=== PATIENT | female | born 1965 | race Caucasian/White ===

== ENCOUNTER 2021-07-22 14:21 | Outpatient (REF) | payer OTHER, SELFPAY ==
[2021-07-22 14:43] LABS: MANUAL DIFF FLAG NO
[2021-07-22 14:54] LABS: Basophils Percent Auto 0.3 % (0-2); Eosinophils Absolute Auto 0.2 X10*3/uL (0.0-0.4); Eosinophils Percent Auto 2.7 % (0-4); Hematocrit 40.2 % (37.0-47.0); Hemoglobin 13.6 g/dl (12.0-16.0); Imm Gran Abs Auto 0.02 X10*3/uL (0.00-0.03); Imm Gran Pct Auto 0.3 % (0.0-0.4); Lymphocytes Absolute Auto 2.7 X10*3/uL (1.2-4.9); Lymphocytes Percent Auto 38.9 % (20-40); Mean Corpuscular HGB Conc 33.8 g/dl (31.0-35.0); Mean Corpuscular Hemoglobin 31.3 pg (27.0-33.0); Mean Corpuscular Volume 92.4 fL (80.0-98.0); Mean Platelet Volume 9.5 fL (9.4-12.3); Monocytes Absolute Auto 0.5 X10*3/uL (0.1-1.2); Monocytes Percent Auto 7.3 % (2-11); Neutrophils Absolute Auto 3.6 x10*3/uL (2.0-8.3); Neutrophils Percent Auto 50.5 % (45-73); Platelet Count 238 X10*3/uL (160-400); Red Blood Count 4.35 X10*6/uL (4.20-5.50); Red Cell Distribution Width 12.8 % (11.0-16.0)
[2021-07-22 15:34] LABS: Erythrocyte Sedimentation Rate 8 MM/HR (0-20)
[2021-07-22 15:46] LABS: Anion Gap 10 (12-20); Blood Urea Nitrogen 16 mg/dL (9-16); Calcium 9.7 mg/dL (8.4-10.2); Carbon Dioxide 28 mmol/L (22-29); Chloride 102 mmol/L (96-108); Cholesterol 227 mg/dL; Estimated Glomerular Filt Rate > 60; Glucose Random 82 mg/dL (60-115); HDL Cholesterol 75 mg/dL; LDL Cholesterol Calculated 138 mg/dl; Potassium 3.8 mmol/L (3.3-5.1); Sodium 136 mmol/L (135-145); Triglycerides 73 mg/dL
[2021-07-22 16:09] LABS: Thyroid Stimulating Hormone 1.29 uIU/mL (0.32-4.0)
[2021-07-22 16:40] LABS: T4 Thyroxine 6.5 ug/dL (4.5-12.0)
== END 2021-07-22 14:22 | disposition home or self-care (01) ==
LOC: HO.LAB 14:21
PROVIDERS: PCP Internal Medicine; Visit Provider Psychiatry & Neurology Neurology
DX: M79.7 Fibromyalgia (principal)
CPT/HCPCS: 36415; 80048; 80061; 82550; 84436; 84443; 85025; 85652

== ENCOUNTER 2024-10-18 13:19 | Outpatient (AMB) | payer OTHER, SELFPAY ==
--- NOTE | 2024-10-18 13:45 | A.OFFVIS_ITS ---
Intake Visit Reasons: MS follow up Allergies erythromycin base Allergy (Verified 10/17/24 18:01) Unknown Medication List - Last Reconciled 10/18/24 by Mal García MD ibuprofen 600 mg PO TID loratadine (Claritin) 10 mg PO DAILY lorazepam 1 mg PO BID paroxetine HCl 10 mg PO DAILY HPI Comments Details: Getting some dizzy spells with lightheadedness with presyncopal every other day for last 3 weeks. It lasts about 10 secs or less. Sh epanics and gets nervous and sits down till it passes. It happens while standing and on times sitting also. Also getting bad neck pain. No new MS symptoms. Headaches have been okay. Meclizine and lorazepam help. 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 Sleep is okay. Ongoing fatigue, takes naps during the day when not working. Has some numbness/tingling in legs that comes and goes. Generalized achiness. She has handicap placard form to be completed. MRI brain from 2005, 09/2017, and 02/2023 appears stable over 12 years, most consistent with MS. Developed some right-sided weakness and difficulty talking in 1995. She was admitted to [facility] and diagnosed with possible encephalitis, had follow up MRI in 2005 which did not show any significant change. MRI on 10/03/2017 shows same lesions in the right middle cerebral peduncle and the subcortical areas in the right hemisphere predominately in the frontal-parietal region and one on the left side. The dizzy spells started 3x/week dizzy and presyncopal episodes only while driving. On one occasion, she started to feel faint during driving, became very nervous and pulled over and was having panic attack. She called her parents to come and pick her up. She is now driving on backroads only. She also gets intermittent, transient tingling sensations in various parts of the body, particularly the left upper extremity. More with stress. She does have anxiety disorder and takes lorazepam 1mg twice a day. [facility] Medical History (Updated 10/18/24 @ 13:59 by Mal García MD) Multiple sclerosis Panic disorder Encephalitis Social History (Updated 10/17/24 @ 18:02 by Wendy Valdovinos MA) Patient Tobacco Use Status: Current everyday Tobacco user Review of Systems Const Details: ROS: ? General/Constitutional Change in appetite?denies.?Chills?denies.?Fatigue?admits.?Fever?denies.?Weight gain?denies.?Weight loss?denies. ? Sleep Difficulty getting to sleep?denies.?Difficulty maintaining sleep?denies?.?Urge to move legs?denies.?Teeth grinding?admits.?Shouting or Kicking during sleep ?denies.?Abnormal behavior during sleep?denies.?Excessive sleep?denies.?Snoring ?denies.?Daytime sleepiness?denies. ? Respiratory Shortness of breath?denies.?Chest pain?denies.?Cough?denies. ? Cardiovascular Chest pain at rest?denies.?Chest pain with exertion?denies.?Claudication ?denies.?Dizziness?denies.?Fluid accumulation in the legs?denies.?Irregular heartbeat?denies.?Palpitations?denies. ? Gastrointestinal Abdominal pain?denies.?Constipation?denies.?Diarrhea?denies.?Difficulty swallowing?denies.?Heartburn?denies.?Nausea?denies.?Rectal bleeding?denies. ? Genitourinary Frequent urination?denies.?Urgency?admits.?Incontinence?denies.?Erectile Dysfunction?denies. ? Musculoskeletal Neck pain?admits.?Back pain?admits.?Muscle aches?denies.?Painful joints ?denies.?Sciatica?denies.?Weakness?denies. ? Neurologic Difficulty swallowing?denies.?Balance difficulty?admits.?Coordination?normal.? Difficulty speaking?denies.?Dizziness?admits.?Fainting?denies.?Gait abnormality ?denies.?Headache?admits.?Loss of strength?denies.?Loss of use of extremity ?denies.?Low back pain?denies.?Memory loss?denies.?Seizures?denies.?Tics ?denies.?Tingling/Numbness?Left hand.?Transient loss of vision?denies.?Tremor ?denies. ? Psychiatric Anxiety?admits.?Auditory/visual hallucinations?denies.?Delusions?denies.? Depressed mood?denies.?Stressors?admits.?Substance abuse?denies.?Suicidal thoughts?denies. Physical Exam Vital Signs: BP 124/86 sitting , 132/87 standing Pulse 88 Neuro Other: Mini Mental Status Exam Level of Consciousness:?Alert.? Orientation:?Knows correct year, month, date, day and season,?Knows correct city, county and state. Knows correct location and floor.? Registration:?Able to register 3 objects.? Attention:?Serial 7's performed accurately.? Recall:?Able to recall 3 out of 3 objects.? Language:?Normal spontaneous speech, fluency, repetition,naming, comprehension, reading and writing.? Total Score:?30/30.? Neurological Abnormal neurological findings:?Circumducting gait, very mild low amplitude, medium frequency bilateral hand tremor worse on finger to nose, slight head tremor?.? Mental Status:?alert and oriented X 3,?Normal attention, orientation, memory and affect.? Cranial Nerves:?Pupils are equal, round and reactive to light. Fundoscopy shows normal disc bilaterally. External occular muscles are intact. Visual almonte are full, no ptosis. Face is symmetrical, no facial weakness or droop. Facial sensat ions are normal. Tongue protrudes in midline. Palate elevates symmetrically. Shoulder shrugging is normal..? Motor Examination:?Normal muscle tone, bulk and strength,?No atrophy or fasciculations,?No drift of the extended upper extremities,?Deep tendon reflexes are 2+?,?Plantars are flexor?.? Straight Leg Raising:?90 degrees.? Sensory Exam:?Normal light touch, temperature, pinprick, vibration and joint- position sensations?,?Rhomberg sign is absent.? Coordination:?no ataxia,?no titubation,?bvdcbl-ad-ubqt, qrvk-metw-szca test and rapid alternating movements were normal.? Gait Exam:?Within normal limits.? Cerebellar Signs:?Nocsvv-in-cofi and oder-ls-lfag is normal,?no dysdiadochokinesia?.? Extrapyramidal System:?No tremor, rigidity with normal facial expressions,?No bradykinesia, no bradyphrenia. Normal arm swing and posture. No propulsion or retropulsion.? Speech:?Normal,?no dysphasia or dysarthria..? General Examination GENERAL APPEARANCE:??normal,?in no acute distress.? HEART:??S1, S2 normal,?no murmurs.? LUNGS:??clear anteriorly and posteriorly.? MUSCULOSKELETAL:??normal.? EXTREMITIES:??no edema.? PSYCH:??alert, oriented,?cognitive function intact,?cooperative with exam.? Assessment & Plan Assessment & Plan (1) Dizziness: Code(s): R42 - Dizziness and giddiness Category: Medical (2) Multiple sclerosis: Comment: first symptomatic in 1995 and recovered over 4 months Code(s): G35 - Multiple sclerosis Category: Medical Plan 72 hr Holter monitor for presyncopal dizzy spells. Continue current meds Orders: Orders ECG 3 day holter monitor Today R42 - Dizziness and giddiness Coding Level of Care Code Est Pt Level 4 (41445) Diagnoses Dizziness R42 Multiple sclerosis G35
--- OUTSIDE RECORDS SUMMARY | 2024-10-18 14:30 | XMS_ITS | Clinical Summary ---
Author Organization [employer] [facility] [employer] Address [address] [place] [address] Care Team Providers Care Implementation Coordinator Name Role Phone Jin Gamboa MD Primary Care Provider Allergies Active Allergy Reactions Criticality Noted Date Comments Amoxicillin 05/26/2022 Erythromycin 05/26/2022 States was anxious. They thought I had meningitis. I went to the ER . No notes found for ER visits, erythromycin listed as allergy June 2008 but not again until 2011 without specific reaction Penicillins 05/26/2022 Medications lorazepam (ATIVAN) 1 MG tablet Active PARoxetine (PAXIL) 10 MG tablet See Instructions, 1/2 tablet By Mouth Daily, Refills 0, Maintenance, 05/11/20 8:50:00 EST, Instructions Replace Required Details, Partial fill upon patient request if the prescription is for a schedule II opioid drug. Active Social History Tobacco Use Types Packs/Day Years Used Date Smoking Tobacco: Every Day Cigarettes Passive Smoke Exposure: Current Smokeless Tobacco: Never Tobacco Cessation:Ready to Q uit: No; Counseling Given: Yes Comments:Pt made aware of smoking cessation services here at the clinic-is not yet ready to quit Comments No Sex and Gender Information Value Date Recorded Sex Assigned at Not on file Legal Sex Female 8:34 AM EDT Gender Identity Not on file Sexual Orientation Not on file Last Filed Vital Signs Vital Sign Reading Time Taken Comments Blood Pressure 104/72 05/26/2022 2:26 PM EST Pulse 72 05/26/2022 2:26 PM EST Temperature 36.8 C (98.2 F) 05/26/2022 2:26 PM EST Respiratory Rate 18 05/26/2022 2:26 PM EST Oxygen Saturation 96% 05/26/2022 2:26 PM EST Inhaled Oxygen Concentration - - Weight - - Height - - Body Mass Index - - Plan of Treatment Health Maintenance Due Date Last Done Comments Colorectal Cancer: COLONOSCO PY Screening every 10 yrs (or Modifier) 1967 Depression: Screening Annual ly using PHQ-2/9 in Adults 18 yrs or above (or HM Modifier)([facility]) 1985 Hepatitis C Virus Infection in Adolescents and Adults: Screening (or Modifier) ([facility]) 1985 ROBERT Screening: Once using ST OP-BANG Questionnaire for Adults with Conditions or high BMI([facility]) 1985 SDOH Screening Reminder: Enedina rachell for all adults ([facility]) 1985 Tobacco Smoking Cessation: i n Adults excluding Women: Behavioral and Pharmacotherapy Interventions ([facility]) 1985 Cervical Cancer Screenin 1-65 yrs of age (or Modifier) 02/14/1988 Cervical Cancer Screening: P ap every 3 yrs pts age 21-65 02/14/1988 Cervical Cancer: Pap Screeni ng with Modifier timing ([facility]) 02/14/1988 Cervical Cancer: hrHPV alone or with cotesting Pap for Pts 30-65yrs screening every 5yrs ([facility]) 02/14/1988 Colorectal Cancer Screening 45 -75 Yrs (or HM Modifier) 02/14/2012 Colorectal Cancer: FLEXIBLE SIGMOIDOSCOPY Screening every 5 yrs 02/14/2012 Colorectal Cancer: Fecal Imm unochemical Test (FIT) Annually [facility] 02/14/2012 Colorectal Cancer: High-sens itivity gFOBT Screening Annually [facility] 02/14/2012 Colorectal Cancer: Stool Col oguard Screening every 3 yrs 02/14/2012 Colorectal Cancer:CT Colonog dalia Screening every 5 yrs 02/14/2012 Breast Cancer: Screening Enedina ually age 50-74 yrs (or HM Modifier)([facility]) 2017 Lung Cancer: Screening Annua lly in adults aged 50 to 80 years (or HM Modifiers)([facility]) 2017 Pneumococcal Vaccination Scr eening: Patients 50+ yrs of age ([facility]) (1 of 1 - PCV) 2017 Zoster/Shingles Vaccine Seri es Screening: Adults aged 18+ yrs (or HM Modifiers)([facility]) (1 of 2) 2017 COVID-19 Vaccine Screening: Initial Series and Booster Status ([facility]) (2023- season) 2023 Flu Vaccination: Yearly for ages 18mos through 64 years (or Modifier)([facility] ) 11/18/2024 DTaP/Tdap/Td Vaccines ([facility]) (3 - Td or Tdap) 08/04/2027 08/03/2017, 10/03/2010 Medical Devices Not on file Insurance , [address] [place] [address] [employer] Care Teams Implementation Coordinator Relationship Specialty Start Date End Date Jin Gamboa MD [address] [place] [id number] PCP - General Internal Medicine 05/26/22
== END 2024-10-18 14:11 | disposition home or self-care (01) ==
LOC: HO.HSM 13:20
PROVIDERS: PCP Internal Medicine; Referring Provider Internal Medicine; Visit Provider Psychiatry & Neurology Neurology
DX: R42 Dizziness and giddiness (principal); G35 Multiple sclerosis
CPT/HCPCS: 99214

== ENCOUNTER → 2024-11-14 13:28 | Outpatient (REF) | payer OTHER, SELFPAY ==
--- NOTE | 2024-11-14 13:31 | HM_ITS ---
Conclusion: 1. Patient was monitored for total period of 3 days 2. Baseline was normal sinus rhythm with average heart of 89 beats per minute 3. No significant pauses noted 4. Rare PACs and PVCs noted without any sustained tachyarrhythmias 5. 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
--- OUTSIDE RECORDS SUMMARY | 2024-11-14 14:09 | XMS_ITS | Clinical Summary ---
Author Organization [email or web address] [facility] [employer] Address [address] [place] [address] Care Team Providers Care Wheel Polisher Name Role Phone Jin Gamboa MD Primary [...] Adults 18 yrs or above (or HM Modifier)([facility]) 1985 Hepatitis C Virus Infection in Adolescents and Adults: Screening (or Modifier) ([facility]) 1985 ROBERT Screening: Once using ST OP-BANG Questionnaire for Adults with Conditions or high BMI([facility]) 1985 SDOH Screening Reminder: Enedina rachell for all adults ([facility]) 1985 Tobacco Smoking Cessation: i n Adults excluding Women: Behavioral and Pharmacotherapy Interventions ([facility]) 1985 Cervical Cancer Screenin 1-65 yrs of age (or Modifier) 02/14/1988 Cervical Cancer Screening: P ap every 3 yrs pts age 21-65 02/14/1988 Cervical Cancer: Pap Screeni ng with Modifier timing ([facility]) 02/14/1988 Cervical Cancer: hrHPV alone or with cotesting Pap for Pts 30-65yrs screening every 5yrs ([facility]) 02/14/1988 Colorectal Cancer Screening 45 -75 Yrs (or HM Modifier) 02/14/2012 Colorectal Cancer: FLEXIBLE SIGMOIDOSCOPY Screening every 5 yrs 02/14/2012 Colorectal Cancer: Fecal Imm unochemical Test (FIT) Annually [facility] 02/14/2012 Colorectal Cancer: High-sens itivity gFOBT Screening Annually [facility] 02/14/2012 Colorectal Cancer: Stool Col oguard Screening every 3 yrs 02/14/2012 Colorectal Cancer:CT Colonog dalia Screening every 5 yrs 02/14/2012 Breast Cancer: Screening Enedina ually age 50-74 yrs (or HM Modifier)([facility]) 2017 Lung Cancer: Screening Annua lly in adults aged 50 to 80 years (or HM Modifiers)([facility]) 2017 Pneumococcal Vaccination Scr eening: Patients 50+ yrs of age ([facility]) (1 of 1 - PCV) 2017 Zoster/Shingles Vaccine Seri es Screening: Adults aged 18+ yrs (or HM Modifiers)([facility]) (1 of 2) 2017 COVID-19 Vaccine Screening: Initial Series and Booster Status ([facility]) (2023- season) 2023 Flu Vaccination: Yearly for ages 18mos through 64 years (or Modifier)([facility] ) 11/18/2024 DTaP/Tdap/Td Vaccines ([facility]) (3 - Td or Tdap) 08/04/2027 08/03/2017, 10/03/2010 Medical Devices Not on file Insurance , [address] [place] [address] [employer] Care Teams Wheel Polisher Relationship Specialty Start Date End Date Jin Gamboa MD [address] [place] [phone] PCP - General Internal Medicine 05/26/22
--- OUTSIDE RECORDS SUMMARY | 2024-11-14 14:09 | XMS_ITS | Clinical Summary ---
Author Organization [facility] Address [address] [address] Phone Care Team Providers Care Director Of Cardiac Cath Lab Name Role Phone Pcp, Unknown Primary Care Provider Unavailabl e Social History Tobacco Use Types Packs/Day Years Used Date Smoking Tobacco: Never Assessed Education Answer Date Recorded Are you interested in more education? Not on snehal e 08/15/2022 Are you concerned about learning? Not on file 08/15/2022 No 08/15/2022 No 08/15/2022 Digital Access Answer Date Recorded No 09/13/2022 No 09/13/2022 No 09/13/2022 Reliable internet access at home? Not on file 09/13/2022 Device with a working camera? Not on file Comments Unknown Sex and Gender Information Value Date Recorded Sex Assigned at Not on file Legal Sex Female 3:27 PM EST Gender Identity Not on file Sexual Orientation Not on file Plan of Treatment Health Maintenance Due Date Last Done Comments LIPID PANEL 1967 DEPRESSION SCREENING 1979 SMOKING Hx and SMOKELESS TOB ACCO SCREENING 02/14/1980 HEPATITIS C SCREENING 1985 HIV ONE-TIME SCREENING (18-6 5 YEARS) 1985 PAP SMEAR 02/14/1988 MAMMOGRAM 2007 COLOGUARD 02/14/2012 COLONOSCOPY 02/14/2012 COLORECTAL CANCER SCREENING 02/14/2012 FIT TEST 02/14/2012 FOBT 02/14/2012 SIGMOIDOSCOPY 02/14/2012 VIRTUAL COLONOSCOPY 02/14/2012 PNEUMOCOCCAL VACCINES (50+ y ears) (1 of 1 - PCV) 2017 ZOSTER VACCINES (1 of 2) 2017 COVID-19 VACCINE ( - 2023-2 5 season) 2023 Adult Td,Tdap Booster 08/04/2027 08/03/2017 HEPATITIS A VACCINES Aged Out No long er eligible based on patient's age to complete this topic HIB VACCINES Aged Out No longer eligi ble based on patient's age to complete this topic MENINGOCOCCAL VACCINES (ACWY) Aged Out No longer eligible based on patient's age to complete this topic MENINGOCOCCAL VACCINES (B) Aged Out N o longer eligible based on patient's age to complete this topic Medical Devices Not on file Insurance PPO PPO PPO PPO PPO PPO PPO PPO PPO Care Teams Director Of Cardiac Cath Lab Relationship Specialty Start Date End Date Pcp, Unknown PCP - General 11/15/21 Additional Source Comments The information contained in this document represents components of the legal health record. It is not the complete legal health record.[facility]
== END ==
LOC: HO.CARD 13:28
PROVIDERS: Visit Provider Psychiatry & Neurology Neurology
DX: R42 Dizziness and giddiness (principal)
CPT/HCPCS: 93242

== ENCOUNTER → 2024-11-14 13:31 | Outpatient (BNV) | payer OTHER, SELFPAY | PROVIDERS: Visit Provider Internal Medicine Cardiovascular Disease | DX: I49.1 Atrial premature depolarization (principal); I49.3 Ventricular premature depolarization | CPT/HCPCS: 93244 ==

== ENCOUNTER 2024-11-29 13:39 | Outpatient (AMB) | payer OTHER, SELFPAY ==
--- NOTE | 2024-11-29 14:06 | A.OFFVIS_ITS ---
Intake Visit Reasons: Dizziness Allergies erythromycin base Allergy (Verified 10/17/24 18:01) Unknown Medication List - Last Reconciled 11/29/24 by Mal García MD ibuprofen 600 mg PO TID loratadine (Claritin) 10 mg PO DAILY lorazepam 1 mg PO BID paroxetine HCl 10 mg PO DAILY 90 days HPI Comments Details: Has been off work because of dizziness since October 29. Still does not feel comfortable driving. Dizziness episodes are less frequent from 2/ dayto 3/ week lasting 2 secs to 45 secs with vertigo and lightheadedness. She is now getting neck pain and tremors in left arm and hand, Head bobbles. in December 2023 she slipped and fell in garage, shutting garage door on left hand and breaking two fingers. 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 No new MS symptoms. Headaches have been okay. Still has some dizziness, particularly when cars drive by quickly. Meclizine and lorazepam help. Sleep is okay. Ongoing fatigue, takes naps during the day when not working. Has some numbness/tingling in legs that comes and goes. Generalized achiness. She has handicap placard form to be completed. MRI brain from 2005, 09/2017, and 02/2023 appears stable over 12 years, most consistent with MS. Developed some right-sided weakness and difficulty talking in 1995. She was admitted to [facility] and diagnosed with possible encephalitis, had follow up MRI in 2005 which did not show any significant change. MRI on 10/03/2017 shows same lesions in the right middle cerebral peduncle and the subco rtical areas in the right hemisphere predominately in the frontal-parietal region and one on the left side. 3x/week dizzy and presyncopal episodes only while driving. On one occasion, she started to feel faint during driving, became very nervous and pulled over and was having panic attack. She called her parents to come and pick her up. She is now driving on backroads only. She also gets intermittent, transient tingling sensations in various parts of the body, particularly the left upper extremity. More with stress. She does have anxiety disorder and takes lorazepam 1mg twice a day. [facility] Medical History (Updated 11/29/24 @ 14:08 by Mal García MD) Tension headache Migraine without aura Fibromyalgia Venous insufficiency (chronic) (peripheral) Degenerative cervical disc Dizzy spells Multiple sclerosis Panic disorder Encephalitis Social History (Updated 10/17/24 @ 18:02 by Wendy Valdovinos MA) Patient Tobacco Use Status: Current everyday Tobacco user Physical Exam Vital Signs: BP 124/86 sitting , 132/87 standing Pulse 88 Neuro Other: ?Mini Mental Status Exam Level of Consciousness:?Alert.? Orientation:?Knows correct year, month, date, day and season,?Knows correct city, county and state. Knows correct location and floor.? Registration:?Able to register 3 objects.? Attention:?Serial 7's performed accurately.? Recall:?Able to recall 3 out of 3 objects.? Language:?Normal spontaneous speech, fluency, repetition,naming, comprehension, reading and writing.? Total Score:?.? Neurological Abnormal neurological findings:?Circumducting gait, very mild low amplitude, medium frequency bilateral hand tremor worse on finger to nose, slight head tremor?.? Mental Status:?alert and oriented X 3,?Normal attention, orientation, memory and affect.? Cranial Nerves:?Pupils are equal, round and reactive to light. Fundoscopy shows normal disc bilaterally. External occular muscles are intact. Visual almonte are full, no ptosis. Face is symmetrical, no facial weakness or droop. Facial sensations are normal. Tongue protrudes in midline. Palate elevates symmetrically. Shoulder shrugging is normal..? Motor Examination:?Normal muscle tone, bulk and strength,?No atrophy or fas ciculations,?No drift of the extended upper extremities,?Deep tendon reflexes are 2+?,?Plantars are flexor?.? Straight Leg Raising:?90 degrees.? Sensory Exam:?Normal light touch, temperature, pinprick, vibration and joint- position sensations?,?Rhomberg sign is absent.? Coordination:?no ataxia,?no titubation,?mqzphy-op-tedj, tgkf-yttd-fdcl test and rapid alternating movements were normal.? Gait Exam:?Within normal limits.? Cerebellar Signs:?Likfqf-sc-nouy and hwkn-bs-hord is normal,?no dysdiadochokinesia?.? Extrapyramidal System:?No tremor, rigidity with normal facial expressions,?No bradykinesia, no bradyphrenia. Normal arm swing and posture. No propulsion or retropulsion.? Speech:?Normal,?no dysphasia or dysarthria..? General Examination GENERAL APPEARANCE:??normal,?in no acute distress.? HEART:??S1, S2 normal,?no murmurs.? LUNGS:??clear anteriorly and posteriorly.? MUSCULOSKELETAL:??normal.? EXTREMITIES:??no edema.? PSYCH:??alert, oriented,?cognitive function intact,?cooperative with exam.? Results Reviewed Results Reviewed: 72 hr Holter report pending Assessment & Plan Assessment & Plan (1) Multiple sclerosis: Comment: first symptomatic in 1995 and recovered over 4 months Code(s): G35 - Multiple sclerosis Category: Medical (2) Migraine without aura: Code(s): G43.009 - Migraine without aura, not intractable, without status migrainosus Category: Medical (3) Tension headache: Code(s): G44.209 - Tension-type headache, unspecified, not intractable Category: Medical Plan: waiting Holter reading. Hand surgeon thru PCP for arthritic finger joints left hand and early Dupuytrens contracture. MRI (4) Dizziness: Code(s): R42 - Dizziness and giddiness Category: Medical Plan MRI brain with and without yong . Stay out of work till dizziness subsides over next 6 weeks. Orders: Orders MR head/brain wo/w con 4 Weeks G35 - Multiple sclerosis Coding Level of Care Code Est Pt Level 4 (64274) Diagnoses Multiple sclerosis G35 Migraine without aura G43.009 Tension headache G44.209 Dizziness R42
--- OUTSIDE RECORDS SUMMARY | 2024-11-29 14:35 | XMS_ITS | Clinical Summary ---
Author Organization [facility] Address [address] [address] Phone Care Team Providers Care Turbo Operator Name Role Phone Pcp, Unknown Primary Care [...] PPO PPO PPO PPO PPO Care Teams Turbo Operator Relationship Specialty Start Date End Date Pcp, Unknown PCP - General 11/15/21 Additional Source Comments The information contained in this document represents components of the legal health record. It is not the complete legal health record.[facility]
--- OUTSIDE RECORDS SUMMARY | 2024-11-29 14:35 | XMS_ITS | Clinical Summary ---
Author Organization [employer] [facility] [employer] Address [address] [email or web address] [address] Care Team Providers Care J2Ee Engineer Name Role Phone Jin Gamboa MD Primary [...] Adults 18 yrs or above (or HM Modifier)([facility]) 1985 Hepatitis C Virus Infection in Adolescents and Adults: Screening (or Modifier) ([facility]) 1985 ROBERT Screening: Once using ST OP-BANG Questionnaire for Adults with Conditions or high BMI([facility]) 1985 SDOH Screening Reminder: Enedina rachell for all adults ([facility]) 1985 Tobacco Smoking Cessation: i n Adults excluding Women: Behavioral and Pharmacotherapy Interventions ([facility]) 1985 Cervical Cancer Screenin 1-65 yrs of age (or Modifier) 02/14/1988 Cervical Cancer Screening: P ap every 3 yrs pts age 21-65 02/14/1988 Cervical Cancer: Pap Screeni ng with Modifier timing ([facility]) 02/14/1988 Cervical Cancer: hrHPV alone or with cotesting Pap for Pts 30-65yrs screening every 5yrs ([facility]) 02/14/1988 Colorectal Cancer Screening 45 -75 Yrs (or HM Modifier) 02/14/2012 Colorectal Cancer: FLEXIBLE SIGMOIDOSCOPY Screening every 5 yrs 02/14/2012 Colorectal Cancer: Fecal Imm unochemical Test (FIT) Annually [facility] 02/14/2012 Colorectal Cancer: High-sens itivity gFOBT Screening Annually [facility] 02/14/2012 Colorectal Cancer: Stool Col oguard Screening every 3 yrs 02/14/2012 Colorectal Cancer:CT Colonog dalia Screening every 5 yrs 02/14/2012 Breast Cancer: Screening Enedina ually age 50-74 yrs (or HM Modifier)([facility]) 2017 Lung Cancer: Screening Annua lly in adults aged 50 to 80 years (or HM Modifiers)([facility]) 2017 Pneumococcal Vaccination Scr eening: Patients 50+ yrs of age ([facility]) (1 of 1 - PCV) 2017 Zoster/Shingles Vaccine Seri es Screening: Adults aged 18+ yrs (or HM Modifiers)([facility]) (1 of 2) 2017 COVID-19 Vaccine Screening: Initial Series and Booster Status ([facility]) (2023- season) 2023 Flu Vaccination: Yearly for ages 18mos through 64 years (or Modifier)([facility] ) 11/18/2024 DTaP/Tdap/Td Vaccines ([facility]) (3 - Td or Tdap) 08/04/2027 08/03/2017, 10/03/2010 Medical Devices Not on file Insurance , [address] [place] [address] [employer] Care Teams J2Ee Engineer Relationship Specialty Start Date End Date Jin Gamboa MD [address] [place] [phone] PCP - General Internal Medicine 05/26/22
== END 2024-11-29 14:31 | disposition home or self-care (01) ==
LOC: HO.HSM 13:40
PROVIDERS: Visit Provider Psychiatry & Neurology Neurology
DX: G35 Multiple sclerosis (principal); G43.009 Migraine without aura, not intractable, without status migrainosus; G44.209 Tension-type headache, unspecified, not intractable; R42 Dizziness and giddiness
CPT/HCPCS: 99214

== ENCOUNTER → 2024-12-28 13:27 | Outpatient (BNV) | payer OTHER, SELFPAY | PROVIDERS: Visit Provider Radiology Diagnostic Radiology | DX: R90.82 White matter disease, unspecified (principal) | CPT/HCPCS: 70551 ==

== ENCOUNTER 2024-12-28 13:30 | Outpatient (REF) | payer OTHER, SELFPAY ==
--- NOTE | ~2024-12-28 | MR_ITS ---
CLINICAL HISTORY: G35 - Multiple sclerosis MR Brain without gadolinium Comparison: None provided Findings: No restricted diffusion. No intra-axial mass or hemorrhage. There are scattered T2 and FLAIR hyperintensities in the periventricular and subcortical white matter of both hemispheres. Large lesion noted to be in the right frontal lobe measuring 10 mm in diameter. There is also a prominent lesion in the right brachium pontis measuring 1.2 cm. No spinal cord lesion seen in the upper cervical cord. No midline shift. No hydrocephalus. Vascular flow voids are intact. Orbital contents are unremarkable. The sinuses and mastoid air cells are clear. No focal bone lesion. IMPRESSION: Scattered T2 and FLAIR hyperintense white matter lesions in the cerebral hemispheres and the right brachium pontis consistent with patient's history of MS. This document has been electronically signed by: Graeme Estevez MD on 12/29/2024 00:47:58
--- OUTSIDE RECORDS SUMMARY | 2024-12-28 16:37 | XMS_ITS | Clinical Summary ---
Author Organization [employer] [facility] [employer] Address [address] [place] [address] Care Team Providers Care Trainmaster Name Role Phone Jin Gamboa MD Primary [...] Adults 18 yrs or above (or HM Modifier)([facility]) 1985 Hepatitis C Virus Infection in Adolescents and Adults: Screening (or Modifier) ([facility]) 1985 ROBERT Screening: Once using ST OP-BANG Questionnaire for Adults with Conditions or high BMI([facility]) 1985 SDOH Screening Reminder: Enedina rachell for all adults ([facility]) 1985 Tobacco Smoking Cessation: i n Adults excluding Women: Behavioral and Pharmacotherapy Interventions ([facility]) 1985 Cervical Cancer Screenin 1-65 yrs of age (or Modifier) 02/14/1988 Cervical Cancer Screening: P ap every 3 yrs pts age 21-65 02/14/1988 Cervical Cancer: Pap Screeni ng with Modifier timing ([facility]) 02/14/1988 Cervical Cancer: hrHPV alone or with cotesting Pap for Pts 30-65yrs screening every 5yrs ([facility]) 02/14/1988 Colorectal Cancer Screening 45 -75 Yrs (or HM Modifier) 02/14/2012 Colorectal Cancer: FLEXIBLE SIGMOIDOSCOPY Screening every 5 yrs 02/14/2012 Colorectal Cancer: Fecal Imm unochemical Test (FIT) Annually [facility] 02/14/2012 Colorectal Cancer: High-sens itivity gFOBT Screening Annually [facility] 02/14/2012 Colorectal Cancer: Stool Col oguard Screening every 3 yrs 02/14/2012 Colorectal Cancer:CT Colonog dalia Screening every 5 yrs 02/14/2012 Breast Cancer: Screening Enedina ually age 50-74 yrs (or HM Modifier)([facility]) 2017 Lung Cancer: Screening Annua lly in adults aged 50 to 80 years (or HM Modifiers)([facility]) 2017 Pneumococcal Vaccination Scr eening: Patients 50+ yrs of age ([facility]) (1 of 1 - PCV) 2017 Zoster/Shingles Vaccine Seri es Screening: Adults aged 18+ yrs (or HM Modifiers)([facility]) (1 of 2) 2017 Flu Vaccination: Yearly for ages 18mos through 64 years (or Modifier)([facility]) 11/18/2024 DTaP/Tdap/Td Vaccines ([facility]) (3 - Td or Tdap) 08/04/2027 08/03/2017, 10/03/2010 [employer] Devices Not on file Insurance , [address] [place] [address] [employer] Care Teams Trainmaster Relationship Specialty Start Date End Date Jin Gamboa MD [facility] [address] [place] [address] [place] [phone] PCP - General Internal Medicine 05/26/22
--- OUTSIDE RECORDS SUMMARY | 2024-12-28 16:37 | XMS_ITS | Clinical Summary ---
Author Organization [facility] Address [address] [address] Phone Care Team Providers Care Tin Pourer Name Role Phone Pcp, Unknown Primary Care [...] 2017 ZOSTER VACCINES (1 of 2) 2017 INFLUENZA VACCINE (#1) 2024 COVID-19 VACCINE (2023-2 5 season) 2024 Adult Td,Tdap Booster 08/04/2027 08/03/2017 HEPATITIS A [...] Insurance PPO PPO PPO PPO PPO PPO HEALTHCARE PPO PPO HEALTHCARE PPO Care Teams Tin Pourer Relationship Specialty Start Date End Date Pcp, Unknown PCP - General 11/15/21 Additional Source Comments The information contained in this document represents components of the legal health record. It is not the complete legal health record.[facility]
== END 2024-12-28 13:31 | disposition home or self-care (01) ==
LOC: HO.MRI 13:30
PROVIDERS: Visit Provider Psychiatry & Neurology Neurology
DX: G35 Multiple sclerosis (principal)
CPT/HCPCS: 70551

== ENCOUNTER 2025-03-01 13:37 | Outpatient (AMB) | payer OTHER, SELFPAY ==
--- OUTSIDE RECORDS SUMMARY | 2025-02-27 17:04 | XMS_ITS | Continuity of Care Document ---
Author Organization [facility] Address [address] [place] [address]- Care Team Providers Care Blanket Weaver Name Role Phone Reji THORNE, Eduardo Russell Primary Care Physician Encounter [facility] Date(s): 02/27/25 - 02/27/[address] [address]- Encounter Diagnosis Facial abrasion(Final) - 02/27/25 Closed head injury(Final) - 02/27/25 Discharge Disposition: A-D/C Home Attending Physician: Randall THORNE, Ralph Ward Admitting Physician: Randall THORNE, Ralph Ward Referring Physician: Not on Staff, Referring MD Encounter Type: Disch ES Allergies, Adverse Reactions, Alerts Substance Criticality Severity Reaction Reaction Severity Status erythromycin 1 Activ e penicillins Hives Active 1States was anxious. They thought I had meningitis. I went to the ER . No notes found for ER visits, erythromycin listed as allergy June 2008 but not again until 2011 without specific reaction Functional Status Functional Status Assessment Assessment Assessment Component Result Effecti ve Date Disability status [CUBS] I'm Thriving - no identified disability 02/27/25 Do you have serious difficulty walking or climbing stairs No 02/27/25 Because of a physica l, mental, or emotional condition, do you have serious difficulty concentrating, remembering, or making decisions No 02/27/25 Are you blind, or do you have serious difficulty seeing, even when wearing glasses No 02/27/25 Are you deaf, or do you have serious difficulty hearing No 02/27/25 Do you need any dipesh tional assistance or accommodations during your visit No 02/27/25 Difficulty Reading O r Writing No 02/27/25 Difficulty communica ting in usual language No 02/27/25 Because of a physica l, mental, or emotional condition, do you have difficulty doing errands alone such as visiting a physician's office or shopping No 02/27/25 Do you have difficul ty dressing or bathing No 02/27/25 Immunizations Given and Recorded Vaccine Date Status Refusal Reason tetanus/diphtheria/pertussis, acel(Tdap) 01/18/24 Given tetanus/diphtheria/pertussis, acel(Tdap) 08/03/17 Recorded tetanus/diphtheria/pertussis, acel(Tdap) 10/03/10 Recorded Diphth/pertussis,acel/tetanus/polio 10/03/10 Recor ded Medications Advil 200 mg oral tablet TAKE 1 TABLET EVERY 6 HOURS PRN, 09/28/12 12:00:00 AM EDT Start Date: 09/28/12 Status: Ordered Medication Dispense Status: Completed Total Allowed Fills: 1 Fills Dispensed: 0 Fish Oil By Mouth, 0 Refills, Maintenance, 01/28/20 9:07:00 AM EDT Start Date: 01/28/20 Status: Ordered Medication Dispense Status: Completed Total Allowed Fills: 1 Fills Dispensed: 0 fluticasone 50 mcg/inh nasal spray 1 sprays, Nares, Both, 2 times a day, # 16 Gm, 0 Refills, Maintenance, 12/31/22 12:00:00 PM EDT, [place], [facility]/pharmacy #[id number], Partial fill upon patient request if the prescription is for a schedule II opioid drug., 1 sprays Nares, Both 2 times a day, 170, cm, 12/31/22 11:49:00 EDT, Height, 59.2, kg, 10/05/22 15:20:00 EDT, Dry Weight Start Date: 12/31/22 Status: Ordered Medication Dispense Status: Completed Quantity: 16.0 Unit: g Total Allowed Fills: 1 Fills Dispensed: 0 loratadine 10 mg oral tablet 10 mg, 1, tablet, By Mouth, Daily, # 30 tablet, Refills 0, Tot. Refills 0, Maintenance, 12/31/22 12:00:00 PM EDT, Route to Pharmacy Electronically, [facility]/pharmacy #[id number], Partial fill upon patient request if the prescription is for a schedule II opioid drug., 170, cm, 12/31/22 11:49:00 EDT, Height, 59.2, kg, 10/05/22 15:20:00 EDT, Dry Weight Start Date: 12/31/22 Status: Ordered Medication Dispense Status: Completed Quantity: 30.0 Unit: tablet Total Allowed Fills: 1 Fills Dispensed: 0 LORazepam 1 mg oral tablet 1 tablet = 1 mg, By Mouth, 2 times a day, # 60 tablet, 0 Refills, Maintenance, 07/03/16 4:43:00 PM EDT, [facility]; [phone] Start Date: 07/03/16 Stop Date: 08/02/16 Status: Ordered Medication Dispense Status: Completed Quantity: 60.0 Unit: tablet Total Allowed Fills: 1 Fills Dispensed: 0 nicotine 14 mg/24 hr transdermal film, extended release 1 patch, Topically, Daily, # 30 patch, 1 Refills, Maintenance, 10/17/24 11:30:00 AM EDT, [place], [facility] # [id number], Partial fill upon patient request if the prescription is for a schedule II opioiddrug., 1 patch Topically Daily, 170, cm, 10/17/24 10:56:00 EDT, Height, 59.5, kg, 01/19/24 1:14:00 EDT, Dry Weight Start Date: 10/17/24 Status: Ordered Medication Dispense Status: Completed Quantity: 30.0 Unit: patch Total Allowed Fills: 2 Fills Dispensed: 0 Paxil 10 mg oral tablet See Instructions, 1/2 tablet By Mouth Daily, Refills 0, Maintenance, 05/11/20 8:50:00 AM EST, Instructions Replace Required Details, Partial fill upon patient request if the prescription is for a schedule II opioid drug. Start Date: 05/11/20 Status: Ordered Medication Dispense Status: Completed Total Allowed Fills: 1 Fills Dispensed: 0 Mental Status Mental Status Assessment Assessment Assessment Component Result Effecti ve Date [place] coma score total 15 02/11 Heart rate 87 02/27/25 Scale weight (physic al object) Standing scale 02/27/25 Body temperature measurement site Temporal 02/27/25 Body weight 59.5 02/27/25 Body height 170 02/27/25 Gas delivery source Respiratory system Room air 02/27/25 Oxygen saturation in Arterial blood by Pulse oximetry 95 02/27/25 Respiratory rate 18 02/27/25 Dry body weight Measured 59.5 02/11 Systolic blood pressure <content ID='[id number]' >145</content>/<rolanda nt ID='[id number]' >78</content> 02/27/25 Body temperature 97.6 02/27/25 Blood pressure measurement site Arm, left 02/27/25 Mental Status Assessment Assessment Assessment Component Result Effecti ve Date Franc coma score total 15 02/11 Problem List Condition Confirmation Course Effective Dates Status H ealth Status Informant Alopecia Confirmed Active Anxiety disorder Confirmed Active Congenital deafness Confirmed Active Encephalitis Confirmed Active Fatigue Confirmed Active Multiple sclerosis Confirmed Active Scoliosis Confirmed Active Current every day smoker Confirmed Active Venous insufficiency Confirmed Active Results Radiology Reports * Exam Date Time Procedure Performing Provider Status 02/27/25 4:[address] Maxilloface W/O Contrast Auth (Verified) Notes: (CT Maxilloface W/O Contrast) Reason For Exam: Trauma RESULT: CT Maxilloface W/O Contrast CT Head/Brain W/O Contrast, CT Cervical Spine W/O Contrast, CT Maxilloface W/O Contrast INDICATION: Hx of Present Illness: L eye pain and facial abrasions after a trip and fall yesterday.No loc thinners. Hx MS; Reason: Trauma; Clinical Question(s): Other:; Intracranial hemorrhage TECHNIQUE: Noncontrast head CT using axial technique was reconstructed in axial and coronal planes.Noncontrast spiral CT through the facial bones and cervical spine was formatted in 3 planes. Automatic tube modulation was used for the cervical spine and iterative dose reconstruction was used for the head, face, and cervical spine to optimize scan parameters and image quality. CTDIvol Body: 8.01 mGy, DLP Body: 179 mGy*cm. CTDIvol Head: 49.08 mGy, DLP Head: 793 mGy*cm. COMPARISON: CT head 12/10/2011. Correlation made with MRI brain 03/09/2023 FINDINGS: Medical Assistant Float View Findings, Lines and Tubes: None. BRAIN AND EXTRA-AXIAL SPACES: No parenchymal hemorrhage, midline shift, or mass effect. Arnold-white matter differentiation is wellpreserved. No acute infarct. Ventricles, sulci, and basilar cisterns are normal. Mild low-density white matter changes. No subarachnoid hemorrhage. No subdural or epidural collection. CALVARIUM, SKULL BASE, AND SOFT TISSUES: No fractures or suspicious bony lesions. The paranasal sinuses and mastoid air cells are clear. Visualized orbits and globes are intact. The extracranial soft tissues are unremarkable. MAXILLOFACIAL: Facial soft tissues: Left preorbital soft tissue swelling. No post septal edema. Nasal bones: No fracture. Orbits and orbital barboza: No fracture of the orbital barboza. No intraorbital hematoma. Maxilla and alveolus: No fracture. Pterygoid plates: No fracture. Visualized parapharyngeal spaces: Symmetric without suspicious or acute abnormality. Zygomatic arches: No fracture. Mandible: The portions included on the exam are normal. No fracture or dislocation. CERVICAL SPINE: No fracture. No acute osseous abnormalities. Reversal of cervical lordosis is likely due to positioning or muscle spasm. Grade 1 anterolisthesisat C3-C4, C4-C5, and C5-C6, likely degenerative. Severe multilevel degenerative disc space narrowing and end plate irregularity. OTHER BONES: No acute abnormality. CERVICAL SOFT TISSUES AND LUNG APICES: Normal soft tissues. Mild centrilobular emphysema. IMPRESSION: 1. No evidence of acute intracranial abnormality. 2. No evidence of acute fracture or dislocation of the cervical spine. 3. No facial bone fracture. WSN: [id number] Ordering Physician: Chapo Ocasio Dictated By: Edu Tuttle MD Dictated Date/Time: 02/27/25 4:37 pm Reviewed By: Edu Tuttle MD Signed By: Edu Tuttle MD Signed Date/Time: 02/27/25 4:37 pm Transcribed By: PEDRO Transcribed Date/Time: 02/27/25 4:33 pm * Exam Date Time Procedure Performing Provider Status 02/27/25 4:[address] Cervical Spine W/O Contrast Auth (Verified) Notes: (CT Cervical Spine W/O Contrast) Reason For Exam: Trauma RESULT: CT Cervical Spine W/O Contrast CT Head/Brain W/O Contrast, CT Cervical Spine W/O Contrast, CT Maxilloface W/O Contrast INDICATION: Hx of Present Illness: L eye pain and facial abrasions after a trip and fall yesterday.No loc thinners. Hx MS; Reason: Trauma; Clinical Question(s): Other:; Intracranial hemorrhage TECHNIQUE: Noncontrast head CT using axial technique was reconstructed in axial and coronal planes.Noncontrast spiral CT through the facial bones and cervical spine was formatted in 3 planes. Automatic tube modulation was used for the cervical spine and iterative dose reconstruction was used for the head, face, and cervical spine to optimize scan parameters and image quality. CTDIvol Body: 8.01 mGy, DLP Body: 179 mGy*cm. CTDIvol Head: 49.08 mGy, DLP Head: 793 mGy*cm. COMPARISON: CT head 12/10/2011. Correlation made with MRI brain 03/09/2023 FINDINGS: Medical Assistant Float View Findings, Lines and Tubes: None. BRAIN AND EXTRA-AXIAL SPACES: No parenchymal hemorrhage, midline shift, or mass effect. Arnold-white matter differentiation is wellpreserved. No acute infarct. Ventricles, sulci, and basilar cisterns are normal. Mild low-density white matter changes. No subarachnoid hemorrhage. No subdural or epidural collection. CALVARIUM, SKULL BASE, AND SOFT TISSUES: No fractures or suspicious bony lesions. The paranasal sinuses and mastoid air cells are clear. Visualized orbits and globes are intact. The extracranial soft tissues are unremarkable. MAXILLOFACIAL: Facial soft tissues: Left preorbital soft tissue swelling. No post septal edema. Nasal bones: No fracture. Orbits and orbital barboza: No fracture of the orbital barboza. No intraorbital hematoma. Maxilla and alveolus: No fracture. Pterygoid plates: No fracture. Visualized parapharyngeal spaces: Symmetric without suspicious or acute abnormality. Zygomatic arches: No fracture. Mandible: The portions included on the exam are normal. No fracture or dislocation. CERVICAL SPINE: No fracture. No acute osseous abnormalities. Reversal of cervical lordosis is likely due to positioning or muscle spasm. Grade 1 anterolisthesisat C3-C4, C4-C5, and C5-C6, likely degenerative. Severe multilevel degenerative disc space narrowing and end plate irregularity. OTHER BONES: No acute abnormality. CERVICAL SOFT TISSUES AND LUNG APICES: Normal soft tissues. Mild centrilobular emphysema. IMPRESSION: 1. No evidence of acute intracranial abnormality. 2. No evidence of acute fracture or dislocation of the cervical spine. 3. No facial bone fracture. WSN: [id number] Ordering Physician: Chapo Ocasio Dictated By: Edu Tuttle MD Dictated Date/Time: 02/27/25 4:37 pm Reviewed By: Edu Tuttle MD Signed By: Edu Tuttle MD Signed Date/Time: 02/27/25 4:37 pm Transcribed By: PEDRO Transcribed Date/Time: 02/27/25 4:33 pm * Exam Date Time Procedure Performing Provider Status 02/27/25 4:[address] Head/Brain W/O Contrast Auth (Verified) Notes: (CT Head/Brain W/O Contrast) Reason For Exam: Trauma RESULT: CT Head/Brain W/O Contrast CT Head/Brain W/O Contrast, CT Cervical Spine W/O Contrast, CT Maxilloface W/O Contrast INDICATION: Hx of Present Illness: L eye pain and facial abrasions after a trip and fall yesterday.No loc thinners. Hx MS; Reason: Trauma; Clinical Question(s): Other:; Intracranial hemorrhage TECHNIQUE: Noncontrast head CT using axial technique was reconstructed in axial and coronal planes.Noncontrast spiral CT through the facial bones and cervical spine was formatted in 3 planes. Automatic tube modulation was used for the cervical spine and iterative dose reconstruction was used for the head, face, and cervical spine to optimize scan parameters and image quality. CTDIvol Body: 8.01 mGy, DLP Body: 179 mGy*cm. CTDIvol Head: 49.08 mGy, DLP Head: 793 mGy*cm. COMPARISON: CT head 12/10/2011. Correlation made with MRI brain 03/09/2023 FINDINGS: Medical Assistant Float View Findings, Lines and Tubes: None. BRAIN AND EXTRA-AXIAL SPACES: No parenchymal hemorrhage, midline shift, or mass effect. Arnold-white matter differentiation is wellpreserved. No acute infarct. Ventricles, sulci, and basilar cisterns are normal. Mild low-density white matter changes. No subarachnoid hemorrhage. No subdural or epidural collection. CALVARIUM, SKULL BASE, AND SOFT TISSUES: No fractures or suspicious bony lesions. The paranasal sinuses and mastoid air cells are clear. Visualized orbits and globes are intact. The extracranial soft tissues are unremarkable. MAXILLOFACIAL: Facial soft tissues: Left preorbital soft tissue swelling. No post septal edema. Nasal bones: No fracture. Orbits and orbital barboza: No fracture of the orbital barboza. No intraorbital hematoma. Maxilla and alveolus: No fracture. Pterygoid plates: No fracture. Visualized parapharyngeal spaces: Symmetric without suspicious or acute abnormality. Zygomatic arches: No fracture. Mandible: The portions included on the exam are normal. No fracture or dislocation. CERVICAL SPINE: No fracture. No acute osseous abnormalities. Reversal of cervical lordosis is likely due to positioning or muscle spasm. Grade 1 anterolisthesisat C3-C4, C4-C5, and C5-C6, likely degenerative. Severe multilevel degenerative disc space narrowing and end plate irregularity. OTHER BONES: No acute abnormality. CERVICAL SOFT TISSUES AND LUNG APICES: Normal soft tissues. Mild centrilobular emphysema. IMPRESSION: 1. No evidence of acute intracranial abnormality. 2. No evidence of acute fracture or dislocation of the cervical spine. 3. No facial bone fracture. WSN: [id number] Ordering Physician: Chapo Ocasio Dictated By: Edu Tuttle MD Dictated Date/Time: 02/27/25 4:37 pm Reviewed By: Edu Tuttle MD Signed By: Edu Tuttle MD Signed Date/Time: 02/27/25 4:37 pm Transcribed By: PEDRO Transcribed Date/Time: 02/27/25 4:33 pm Vital Signs Most recent to oldest [Reference Range]: 1 2 3 Height 170 cm (02/27/25 12:58 PM) Weight 59.5 kg (02/27/25 12:58 PM) Oxygen Saturation [94-100 %] 96 % (02/27/25 4:18 PM) 95 % (02/27/25 12:58 PM) 99 % (02/27/25 12:57 PM) Pulse Rate [55-90 bpm] 71 bpm (02/27/25 4:18 PM) 87 bpm (02/27/25 12:58 PM) 105 bpm *H* (02/27/25 12:57 PM) Blood Pressure [90-138/55-84 mm Hg] 139/77mm Hg *H* (02/27/25 4:18 PM) 145/78mm Hg *H* (02/27/25 12:58 PM) Respiratory Rate [16-30 br/min] 20 br/min (02/27/25 4:18 PM) 18 br/min (02/27/25 12:58 PM) Temperature [96.8-100.4 DegF] 98.7 DegF (02/27/25 4:18 PM) 97.6 DegF (02/27/25 12:58 PM) Mode of Delivery (Oxygen) Room air (02/27/25 4:18 PM) Room air (02/27/25 12:58 PM) Room air (02/27/25 12:57 PM) Blood pressure sites Arm, left (02/27/25 4:18 PM) Arm, left (02/27/25 12:58 PM) Temperature Route Oral (02/27/25 4:18 PM) Temporal (02/27/25 12:58 PM) Dry Weight 59.5 kg (02/27/25 12:58 PM) Weight Obtained Via Standing scale (02/27/25 12:58 PM) Social History Social History Type Response Smoking Status 10 or more cigarette s (1/2 pack or more)/day in last 30 days entered on: 10/17/24 Sex Female Sex Representation Female (finding) Status Not Social Determinants of Health Assessment Assessment Assessment Component Result Effecti ve Date Unspecifed Social Determinants of Health Assessment Housing status I have housing 02/27/25 Within the last year , have you been afraid of your partner or ex-partner No 02/27/25 Do you feel physical ly and emotionally safe where you currently live [PRAPARE] Yes 02/27/25 How often do you see or talk to people that you care about and feel close to [PRAPARE] 3 to 5 times a week 02/27/25 Has lack of transpor tation kept you from medical appointments, meetings, work, or from getting things needed for daily living No 02/27/25 Have you or any fami ly members you live with been unable to get any of the following when it was really needed in past 1 year [PRAPARE] None 02/27/25 Are you worried abou t losing your housing [PRAPARE] No 02/27/25 Note * Randall THORNE, Ralph Ward: PERFORM Event Display: Patient Education Leaflets Authored Date: [id number] Abrasions ?? [id number] Abrasions Abrasions are skin scrapes. Their treatment depends on how large and deep the abrasion is. Skin heals at different rates, depending on a person's general health, age, diet, and whether the abrasion becomes infected. Home care You may be prescribed an antibiotic cream or ointment to apply to the wound. This helps prevent infection. Follow instructions when using this medicine. General care ??? To care for the abrasion, do the following each day for as long as directed by your health care provider: o If you were given a bandage, change it once a day. If your bandage sticks to the wound, soak it in warm water until it loosens. o Wash the area with soap and warm water. You may do this in a sink or under a tub faucet or shower. Rinse off the soap. Then pat the area dry with a clean towel. o If antibiotic ointment or cream was prescribed, reapply it to the wound as directed. Cover the wound with a fresh nonstick bandage. If the bandage becomes wet or dirty, change it assoon as possible. o Some antibiotic ointments or creams can cause an allergic reaction or dermatitis. This may cause redness, itching, or hives. If this occurs, stop using the ointment right away andwash off any remaining ointment. You may need to take some allergy medicine to relieve symptoms. ??? You may use acetaminophen or ibuprofen to control pain unless another pain medicine was prescribed.??Talk with your provider before using these medicines if you have chronic liver or kidney disease,or ever had a stomach ulcer or digestive tract bleeding. Don???t give ibuprofen to children youngerthan 6 months old. ??? Most skin wounds heal within 10 days. An infection may occur even with treatment. So it???s important to watch the wound for signs of infection. ?? Follow-up care Follow up with your health care provider as advised. ?? When to get medical advice Contact your health care provider right away if you have: ??? A fever of 100.4??F (38??C) or higher, or as advised by your provider. ??? Increasing pain, redness, swelling, or fluid leaking from the wound. ??? Bleeding from the wound that doesn't stop after a few minutes of steady, firm pressure. ??? Decreased ability to move any body part near the wound. ?? Last Reviewed Date: 2024 00:00:00 ?? [employer]. All rights reserved. This information is not intended as a substitute for professional medical care. Always follow your healthcare professional's instructions. ?? * Ralph Pereira MD: PERFORM Event Display: Patient Education Leaflets Authored Date: [id number] Head Injury (Adult) ?? [id number] Head Injury (Adult) You have a head injury. It doesn't appear serious at this time. But symptoms of a more serious problem, such as a mild brain injury (concussion) or bruising or bleeding in the brain, may appear later. For this reason, you or someone caring for you will need to watch for the symptoms listed below. Once you???re home, also be sure to follow any care directions you???re given. Home care Watch??for the following symptoms Seek emergency medical care if you have any of these symptoms over the next hours to days:? Headache that gets worse or doesn't go away ??? Nausea or vomiting ??? Dizziness ??? Sensitivity to light or noise ??? Unusual sleepiness or grogginess ??? Trouble falling asleep ??? Personality changes ??? Vision changes ??? Memory loss ??? Confusion ??? Trouble walking or clumsiness ??? Loss of consciousness (even for a short time) ??? Inability to be awakened ??? Stiff neck ??? Weakness ornumbness in any part of the body ??? Seizures General care ??? If you were prescribed medicines for pain, use them as directed. Note: Don???t take other medicines for pain without talking to your healthcare provider first. ??? To help reduce swelling and pain, apply a cold source to the injured area for up to 20 minutes at a time. Do this as often??as directed. Use a cold pack or bag of ice wrapped in a thin towel. Never apply a cold source directly to the skin. ??? If you are on a blood thinner for a health condition and have a head injury, follow your healthcare provider's specific directions. You are at a higher risk for bleeding fromthe blood thinner, so your provider will talk to you about taking extra precautions. ??? If you have cuts or scrapes as a result of your head injury, care for them as directed. ??? For the next 24 hours??(or longer, if directed): o Don???t drink alcohol or use sedatives or other medicines that makeyou sleepy. o Don???t drive or operate machinery. o Don???t do anything strenuous, such as heavy lifting or straining. o Limit tasks that need concentration. This includes reading, using a smartphone or computer, watching TV, and playing video games. o Don???t return to sports or other activities that could result in another head injury until approved by your healthcare provider. ?? Follow-up care Follow up with your healthcare provider, or as directed.??If imaging tests were done, they will be reviewed by a healthcare provider. You will be told the results and any new findings that may affectyour care. ?? When to seek medical advice Call your healthcare provider right away if any of the following occur: ??? Pain doesn???t get better or gets worse ??? New or increased swelling or bruising ??? Increased redness,??warmth,??drainage, or bleeding from the injured area ??? Fluid drainage or bleeding from the nose or ears ??? Any depression or bony abnormality in the injured area ??? Persistent confusion or lethargy ??? Personalitychanges ??? Bruising behind the ears or bruising around the eyes ?? Last Reviewed Date: 2024 00:00:00 ?? [id number] [employer]. All rights reserved. This information is not intended as a substitute for professional medical care. Always follow your healthcare professional's instructions. ?? Patient Care team information Care Team Personnel Name: Eduardo Mendoza MD Position: [facility] Physician - Primary Care Member Role: PCP Address: [address] [place] [address] Telecom: Care Team Related Persons Name: AGATA HENRIQUEZ Name: DORA BUSH Insurance Providers Guarantor name: LINSEY [employer] [facility] [employer] [facility] Information #: 1 Payer: [employer] NON HMO PLANS Payer Identifier: NA Member Number: [id number] Group Number: [id number] Subscriber Identifier: [id number] Relationship to Subscriber: self Coverage Type: Managed Care (Private) Coverage Verification Date: NA Telecom: NA Address: NA
--- NOTE | 2025-03-01 13:50 | A.OFFVIS_ITS ---
Intake Visit Reasons: 3m Allergies erythromycin base Allergy (Verified 10/17/24 18:01) Unknown HPI Comments Details: Fell 2 days ago after losing her balance lifting the garage door and injured her nose and left orbital area of the face. Was seen at [facility]. Has been off work because of dizziness since October 29. No dizzy spell in a month. Hassome fatigue and sleeping 10-13 hrs. Fell a month ago also going to the bathroom, without injuries. Has not driven . Still does not feel comfortable driving. Was getting dizzy spells lasting 2 secs to 45 secs with vertigo and lightheadedness. She is now getting neck pain and tremors in left arm and hand, Head bobbles. in December 2023 she slipped and fell in garage, shutting garage door on left hand and breaking two fingers. 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 No new MS symptoms. Headaches have been okay. Still has some dizziness, particularly when cars drive by quickly. Meclizine and lorazepam help. Sleep is okay. Ongoing fatigue, takes naps during the day when not w orking. Has some numbness/tingling in legs that comes and goes. Generalized achiness. She has handicap placard form to be completed. MRI brain from 2005, 09/2017, and 02/2023 appears stable over 12 years, most consistent with MS. Developed some right-sided weakness and difficulty talking in 1995. She was admitted to [facility] and diagnosed with possible encephalitis, had follow up MRI in 2005 which did not show any significant change. MRI on 10/03/2017 shows same lesions in the right middle cerebral peduncle and the subcortical areas in the right hemisphere predominately in the frontal-parietal region and one on the left side. 12/29/24 MRI: There are scattered T2 and FLAIR hyperintensities in the periventricular and subcortical white matter of both hemispheres. Large lesion noted to be in the right frontal lobe measuring 10 mm in diameter. There is also a prominent lesion in the right brachium pontis measuring 1.2 cm. No spinal cord lesion seen in the upper cervical cord. 3x/week dizzy and presyncopal episodes only while driving. On one occasion, she started to feel faint during driving, became very nervous and pulled over and was having panic attack. She called her parents to come and pick her up. She is now driving on backroads only. She also gets intermittent, transient tingling sensations in various parts of the body, particularly the left upper extremity. More with stress. She does have anxiety disorder and takes lorazepam 1mg twice a day. COUNT INCLUDES THE [facility] Medical History (Updated 03/01/25 @ 14:06 by Mal García MD) Tension headache Migraine without aura Fibromyalgia Venous insufficiency (chronic) (peripheral) Degenerative cervical disc Dizzy spells Multiple sclerosis Panic disorder Encephalitis Social History (Updated 10/17/24 @ 18:02 by Wendy Valdovinos MA) Patient Tobacco Use Status: Current everyday Tobacco user Review of Systems Const Details: ROS: ? General/Constitutional Change in appetite?denies.?Chills?denies.?Fatigue?admits.?Fever?denies.?Weight gain?denies.?Weight loss?denies. ? Sleep Difficulty getting to sleep?denies.?Difficulty maintaining sleep?denies?.?Urge to move legs?denies.?Teeth grinding?admits.?Shouting or Kicking during sleep ?denies.?Abnormal behavior during sleep?denies.?Excessive sleep?denies.?Snoring ?denies.?Daytime sleepiness?denies. ? Respiratory Shortness of breath?denies.?Chest pain?denies.?Cough?denies. ? Cardiovascular Chest pain at rest?denies.?Chest pain with exertion?denies.?Claudication ?denies.?Dizziness?denies.?Fluid accumulation in the legs?denies.?Irregular heartbeat?denies.?Palpitations?denies. ? Gastrointestinal Abdominal pain?denies.?Constipation?denies.?Diarrhea?denies.?Difficulty swallowing?denies.?Heartburn?denies.?Nausea?denies.?Rectal bleeding?denies. ? Genitourinary Frequent urination?denies.?Urgency?admits.?Incontinence?denies.?Erectile Dysfunction?denies. ? Musculoskeletal Neck pain?admits.?Back pain?admits.?Muscle aches?denies.?Painful joints ?denies.?Sciatica?denies.?Weakness?denies. ? Neurologic Difficulty swallowing?denies.?Balance difficulty?admits.?Coordination?normal.? Difficulty speaking?denies.?Dizziness?admits.?Fainting?denies.?Gait abnormality ?denies.?Headache?admits.?Loss of strength?denies.?Loss of use of extremity ?denies.?Low back pain?denies.?Memory loss?denies.?Seizures?denies.?Tics ?denies.?Tingling/Numbness?Left hand.?Transient loss of vision?denies.?Tremor ?denies. ? Psychiatric Anxiety?admits.?Auditory/visual hallucinations?denies.?Delusions?denies.? Depressed mood?denies.?Stressors?admits.?Substance abuse?denies.?Suicidal thoughts?denies. Physical Exam Vital Signs: BP 124/86 sitting , 132/87 standing Pulse 88 Neuro Other: ?Mini Mental Status Exam Level of Consciousness:?Alert.? Orientation:?Knows correct year, month, date, day and season,?Knows correct city, county and state. Knows correct location and floor.? Registration:?Able to register 3 objects.? Attention:?Serial 7's performed accurately.? Recall:?Able to recall 3 out of 3 objects.? Language:?Normal spontaneous speech, fluency, repetition,naming, comprehension, reading and writing.? Total Score:?30/30.? Neurological Abnormal neurological findings:?Circumducting gait, very mild low amplitude, medium frequency bilateral hand tremor worse on finger to nose, slight head tremor?.? Mental Status:?alert and oriented X 3,?Normal attention, orientation, memory and affect.? Cranial Nerves:?Pupils are equal, round and reactive to light. Fundoscopy shows normal disc bilaterally. External occular muscles are intact. Visual almonte are full, no ptosis. Face is symmetrical, no facial weakness or droop. Facial sensations are normal. Tongue protrudes in midline. Palate elevates symmetrically. Shoulder shrugging is normal..? Motor Examination:?Normal muscle tone, bulk and strength,?No atrophy or fasciculations,?No drift of the extended upper extremities,?Deep tendon reflexes are 2+?,?Plantars are flexor?.? Straight Leg Raising:?90 degrees.? Sensory Exam:?Normal light touch, temperature, pinprick, vibration and joint- position sensations?,?Rhomberg sign is absent.? Coordination:?no ataxia,?no titubation,?jmwhjr-[id number], iyid-tcdp-rkda test and rapid alternating movements were normal.? Gait Exam:?Within normal limits.? Cerebellar Signs:?Yjahfh-ew-[id number] and xqsf-mk-ofio is normal,?no dysdiadochokinesia?.? Extrapyramidal System:?No tremor, rigidity with normal facial expressions,?No bradykinesia, no bradyphrenia. Normal arm swing and posture. No propulsion or retropulsion.? Speech:?Normal,?no dysphasia or dysarthria..? General Examination GENERAL APPEARANCE:??normal,?in no acute distress.? HEART:??S1, S2 normal,?no murmurs.? LUNGS:??clear anteriorly and posteriorly.? MUSCULOSKELETAL:??normal.? EXTREMITIES:??no edema.? PSYCH:??alert, oriented,?cognitive function intact,?cooperative with exam.? Assessment & Plan Assessment & Plan (1) Multiple sclerosis: Comment: first symptomatic in 1995 and recovered over 4 months. New MRI from 12/29/24 reviewed with patient. She will send the old one for comparison. Code(s): G35 - Multiple sclerosis Category: Medical (2) Migraine without aura: Code(s): G43.009 - Migraine without aura, not intractable, without status migrainosus Category: Medical (3) Tension headache: Code(s): G44.209 - Tension-type headache, unspecified, not intractable Category: Medical (4) Dizziness: Code(s): R42 - Dizziness and giddiness Category: Medical Plan MRI brain with and without yong . Stay out of work till 2025. Coding Level of Care Code Est Pt Level 4 (40421) Diagnoses Multiple sclerosis G35 Migraine without aura G43.009 Tension headache G44.209 Dizziness R42
--- OUTSIDE RECORDS SUMMARY | 2025-03-01 16:31 | XMS_ITS | Clinical Summary ---
Author Organization [email or web address] Address [address] [place] [address] Care Team Providers Care Manager In Training Name Role Phone Jin Gamboa MD Primary [...] Mass Index - - Plan of Treatment Not on file Medical Devices Not on file Insurance , [address] [place] [address] [employer] Care Teams Manager In Training Relationship Specialty Start Date End Date Jin Gamboa MD [address] [place] [address] PCP - General Internal Medicine 05/26/22
--- OUTSIDE RECORDS SUMMARY | 2025-03-01 16:32 | XMS_ITS | Clinical Summary ---
Author Organization [facility] Address [address] [address] Phone Care Team Providers Care Finance And Administration Manager Name Role Phone Pcp, Unknown Primary Care [...] 2017 INFLUENZA VACCINE (#1) 2024 COVID-19 VACCINE (1 - 2024-2 6 season) 2024 Adult Td,Tdap Booster 08/04/2027 08/03/2017 RSV VACCINE (1 - 1-dose 75+ series) 2042 HEPATITIS A VACCINES Aged Out No long [...] Medical Devices Not on file Insurance PPO [place] [address] [address] [place] [address] PPO [employer] P[employer] P[employer] PPO [place] [employer] P[employer] Care Teams Finance And Administration Manager Relationship Specialty Start Date End Date Pcp, Unknown PCP - General 11/15/21 Additional Source Comments The information contained in this document represents components of the legal health record. It is not the complete legal health record.[facility]
== END 2025-03-01 14:15 | disposition home or self-care (01) ==
LOC: HO.HSM 13:38
PROVIDERS: Visit Provider Psychiatry & Neurology Neurology
DX: G35.D Multiple sclerosis, unspecified (principal); G43.009 Migraine without aura, not intractable, without status migrainosus; G44.209 Tension-type headache, unspecified, not intractable; R42 Dizziness and giddiness
CPT/HCPCS: 99214